=== PATIENT | female | born 1975 | race Caucasian/White ===

== ENCOUNTER 2023-11-24 14:34 | Outpatient (CLI) | payer OTHER, SELFPAY | END 2023-11-24 14:35 | disposition home or self-care (01) | PROVIDERS: PCP Family Medicine; Visit Provider Family Medicine | DX: K62.5 Hemorrhage of anus and rectum (principal); Z13.220 Encounter for screening for lipoid disorders; N91.2 Amenorrhea, unspecified | CPT/HCPCS: 80053; 80061; 84443 ==

== ENCOUNTER 2023-12-21 10:44 | Outpatient (CLI) | payer OTHER, SELFPAY ==
--- NOTE | 2023-12-21 10:45 | MM_ITS ---
Patient: REYES CLARKE Facility:?[facility] Patient ID:?[id number] Site Patient ID:?[id number]. Site :?[id number] Study:?XRay-Breast Bilateral 3D W/CAD-12/21/2023 11:36:38 AM Ordering Physician:?Che Tapia Final Report: BILATERAL SCREENING MAMMOGRAM WITH COMPUTER-AIDED DETECTION AND TOMOSYNTHESIS TECHNIQUE: CC and MLO views were obtained. These mammographic images have been obtained using full-field digital technique. These mammographic images were interpreted with the benefit of computer-aided detection. Breast Tomosynthesis was used in this interpretation. COMPARISON FILM: 03/03/22. FINDINGS: There are scattered areas of fibroglandular density. IMPRESSION: There is no radiographic evidence for malignancy. ASSESSMENT: BI-RADS Category 1: Negative RECOMMENDATION: Routine screening mammogram in 1 year. A lay language report of this examination will be provided to the patient. Daniel Ferguson M.D. Diagnostic Radiologist [email or web address] DSM/sp R& Transcribed: 4:47 p.m. SP/Dictated by: Daniel Ferguson MD @ 12/30/2023 12:40:00 PM Signed by:?Daniel Ferguson MD @12/30/2023 4:48:21 PM (Electronic Signature)
== END 2023-12-21 10:45 | disposition home or self-care (01) ==
LOC: MAMMO 10:45
PROVIDERS: PCP Family Medicine; Visit Provider Family Medicine
DX: Z12.31 Encounter for screening mammogram for malignant neoplasm of breast (principal); E78.5 Hyperlipidemia, unspecified
CPT/HCPCS: 77063; 77067; 80061; T1013

== ENCOUNTER 2024-03-06 05:59 | Outpatient (CLI) | payer OTHER, SELFPAY | END 2024-03-06 06:00 | disposition home or self-care (01) | LOC: NFLDREF 05:59 | PROVIDERS: PCP Family Medicine; Visit Provider Family Medicine | DX: R30.0 Dysuria (principal); R39.15 Urgency of urination | CPT/HCPCS: 87086; 87186 ==

== ENCOUNTER 2024-07-17 07:15 | Outpatient (CLI) | payer OTHER, SELFPAY | END 2024-07-17 07:16 | disposition home or self-care (01) | LOC: NFLDREF 07:16 | PROVIDERS: PCP Family Medicine; Visit Provider Family Medicine | DX: R39.9 Unspecified symptoms and signs involving the genitourinary system (principal) | CPT/HCPCS: 87086; T1013 ==

== ENCOUNTER 2025-04-24 08:26 | Outpatient (CLI) | payer OTHER, SELFPAY | END 2025-04-24 08:27 | disposition home or self-care (01) | PROVIDERS: PCP Family Medicine; Visit Provider Family Medicine | DX: R73.01 Impaired fasting glucose (principal); R53.83 Other fatigue; F41.9 Anxiety disorder, unspecified; E66.9 Obesity, unspecified | CPT/HCPCS: 80053; 80061; 84443 ==

== ENCOUNTER 2025-07-25 12:03 | Outpatient (CLI) | payer OTHER, SELFPAY | END 2025-07-25 12:04 | disposition home or self-care (01) | LOC: NFLDREF 12:03 | PROVIDERS: PCP Family Medicine; Visit Provider Family Medicine | DX: R39.9 Unspecified symptoms and signs involving the genitourinary system (principal) | CPT/HCPCS: 87086 ==